=== PATIENT | female | born 1980 | race Caucasian/White ===

== ENCOUNTER 2024-09-15 06:28 | Day surgery (SDC) | payer BC ==
[2024-09-15] MEDS ORDERED: Bupivacaine 0.5% 30 ML SDV ONE ×2 (06:53→07:17)
[2024-09-15 06:54] LABS: BASOPHILS ABSOLUTE AUTO 0.04 K/uL (0.00-0.10); BASOPHILS PERCENT AUTO 0.5 % (0.1-1.3); EOSINOPHILS ABSOLUTE AUTO 0.29 K/uL (0.00-0.40); EOSINOPHILS PERCENT AUTO 3.7 % (0.0-5.4); HEMATOCRIT 41.5 % (34.3-46.0); HEMOGLOBIN 13.4 g/dL (11.2-15.5); IMMATURE GRAN ABSOLUTE AUTO 0.02 K/uL (0.00-0.23); IMMATURE GRAN PERCENT AUTO 0.3 % (0.0-0.7); LYMPHOCYTES ABSOLUTE AUTO 2.97 K/uL (0.8-3.3); LYMPHOCYTES PERCENT AUTO 37.7 % (11.4-47.7); MEAN CORPUSCULAR HEMOGLOBIN 27.3 pg (31.6-35.5); MEAN CORPUSCULAR HGB CONC 32.3 g/dL (31.6-35.5); MEAN CORPUSCULAR VOLUME 84.7 fL (81.4-99.0); MONOCYTES PERCENT AUTO 6.3 % (3.3-12.6); NEUTROPHILS ABSOLUTE AUTO 4.06 K/uL (1.0-7.6); NEUTROPHILS PERCENT AUTO 51.5 % (40.0-78.1); PLATELET COUNT,PLT 262 K/uL (130-375); WHITE BLOOD CELL COUNT,WBC 7.9 K/uL (3.2-11.0)
[2024-09-15] MEDS: Nozin Nasal Sanitizer NASBOTH ONE (07:02)
[2024-09-15 07:09] LABS: ANION GAP 9.7 mmol/L (5.0-14.0); CALCIUM 9.1 mg/dL (8.5-10.1); CREATININE 0.9 mg/dL (0.6-1.0); EST CRCL DRUG DOSING (CG) 66.67 mL/min; POTASSIUM,K 3.6 mmol/L (3.6-5.2)
[2024-09-15] MEDS ORDERED: fentaNYL 100 MCG/2 ML SDV ONE (07:15)
[2024-09-15] MEDS ORDERED: Midazolam 1 MG/ML 2 ML SDV ONE (07:16)
[2024-09-15] MEDS ORDERED: Propofol 200 MG/20 ML SDV ONE (07:16)
[2024-09-15] MEDS ORDERED: Ondansetron 4 MG/2 ML SDV ONE (07:17)
[2024-09-15] MEDS ORDERED: Dexamethasone 4 MG/ML SDV ONE (07:17)
[2024-09-15] MEDS: Lactated Ringers 1,000 ML IV SCH (07:19)
[2024-09-15] MEDS ORDERED: ceFAZolin 1 GM in Premix Bag 1 BAG IV ONE (07:30)
[2024-09-15] MEDS: Acetaminophen/oxyCODONE 325-5 MG Tab PO PRN (11:31)
== END 2024-09-15 12:50 | disposition home or self-care (01) ==
LOC: JP.SDS 06:28
PROVIDERS: ATTEND Specialist
DX: M75.31 Calcific tendinitis of right shoulder (principal); M75.121 Complete rotator cuff tear or rupture of right shoulder, not specified as traumatic; I10 Essential (primary) hypertension; Z88.8 Allergy status to other drugs, medicaments and biological substances
CPT/HCPCS: 01630; 29822; 36415; 80048; 84703; 85025; A9270; C1713; J0665; J1100; J2250; J2405; J2704; J3010; J7120